=== PATIENT | male | born 1945 | race Two or more races ===

== ENCOUNTER 2019-05-25 13:05 | Outpatient (CLI) | payer MEDICARE, BC ==
[~2019-05-25] VITALS: Ht 179.1 cm; Wt 95.3 kg
[2019-05-25 13:57] LABS: CALCIUM, SERUM 8.5 mg/dL (8.5-10.1); CARBON DIOXIDE 26 mmol/L (21-32); CHLORIDE 99 mmol/L (98-107); CREATININE 0.8 mg/dL (0.6-1.3); GLUCOSE 103 mg/dL (74-106); POTASSIUM 4.7 mmol/L (3.5-5.1); SODIUM SERUM 135 mmol/L (136-145); UREA NITROGEN, BLOOD 12 mg/dL (7-18)
[2019-05-25] MEDS ORDERED: CT SWABBABLE VALVE TRANS SET 1 EA INFUS.SET MC ONE ×2 (13:59→14:40)
[2019-05-25] MEDS ORDERED: IOHEXOL-350 100 ML VIAL IV ONE ×2 (13:59→14:40)
--- NOTE | 2019-05-25 14:31 | NUR ---
ICU/RN: (1420)OUTPATIENT CTA. CONSENT AND CHECKLIST IN CHART. DIFFICULT TO INSERT PIV IN AC(MULTIPLE ATTEMPTS DONE). PT STATES HE IS ALWAYS A HARD STICK. RECEIVED OK FROM TO INSERT 18G. PIV IN RIGHT FOREARM LONG FLUSHES OK. PIV INSERTED, LINE TESTED, GOOD BLOOD RETURN NOTED. PT READY TO START EXAM, BP STABLE, BP 127/70, HR 53. ALLERGIES VERIFIED (PENICILLIN). BUN AND CREATININE CHECKED, WNL. 1430:NITROGLYCERINE ADMINISTERED (VITALS:BP 131/63, HR 47, O2 96, RR 16) NO METOPROLOL NEEDED. PT HR BELOW 60. 1432: ENDING VITALS: BP110/53, HR 45, O2 98%, RR 18
[2019-05-25] MEDS ORDERED: IV NS 0.9% 250 ML IV ONE (14:40)
--- NOTE | 2019-05-25 14:40 | NUR ---
ICU/RN: RESULTS SENT TO MD, REPEAT EXAM NEEDED. EXPLAINED TO THE PT, PT AGREED.
--- NOTE | 2019-05-25 14:45 | NUR ---
ICU/RN STARTED REPEAT CTA PER MD ORDERS BP 123/54 HR 45 O2 96% RR 16 NITRO GIVEN 1452 BP114/57, HR 43
--- NOTE | 2019-05-25 14:55 | NUR ---
ICE/RN: CTA COMPLETE BP 93/53 HR 59, RR 18 O2 98%. VSS, NO ACUTE DISTRESS. WILL CONTINUE TO MONITOR AND ASSESS.
--- NOTE | 2019-05-25 15:07 | NUR ---
ICU/RN: CTA COMPLETE. VSS, NO DISTRESS, NO WEAKNESS. PT ESCORTED OUT. INSTRUCTIONS GIVEN. WILL FOLLOW UP WITH PRIMARY FOR RESULTS.
== END 2019-05-25 23:59 | disposition home or self-care (01) ==
LOC: RAD 13:05
PROVIDERS: ATTEND Internal Medicine Interventional Cardiology
DX: I35.8 Other nonrheumatic aortic valve disorders (principal); I25.10 Atherosclerotic heart disease of native coronary artery without angina pectoris; M47.814 Spondylosis without myelopathy or radiculopathy, thoracic region
CPT/HCPCS: 36415; 75574; 80048; J7050; Q9967 ×2